=== PATIENT | male | born 1940 | race Caucasian/White ===

== ENCOUNTER 2017-01-20 20:43 | Emergency (ER) | payer MEDICARE, BC, OTHER ==
[2017-01-20] MEDS ORDERED: ATEN25TA PO (21:54)
[2017-01-20] MEDS ORDERED: BLOOD THINNER PO (21:54)
[2017-01-20 21:58] VITALS: BP 119/77; PULSE 100; RESP 18; TEMP 97.8; O2SAT 97
--- NOTE | 2017-01-20 22:10 | PD ---
HPI Chief Complaint: Psychiatric Symptoms Time Seen by Provider: 21:29 Travel History International Travel<30 days: No Contact w/Intl Traveler<30days: No Traveled to known affect area: No History of Present Illness HPI This is a 76-year-old male who is here under a Valentin act with his because they were a silver alert. Evidently they both they both left [place] and drove to [place] because his son was in the hospital here. At some point they made contact with a family member and told them they were lost in [place]. The family became concerned as they hadn't heard from them in several days. The patient reports he is not sure what his children are worried about and he thinks a lot of this has to do with them having a broken phone. PFSH Past Medical History Hx Anticoagulant Therapy: Yes Atrial Fibrillation: Yes Cardiovascular Problems: Yes (AFIB) Hypertension: Yes Social History Alcohol Use: No Tobacco Use: No Allergies-Medications (Allergen,Severity, Reaction): Coded Allergies: No Known Allergies (Unverified , 01/20/17) Reported Meds & Prescriptions Reported Meds & Active Scripts Active Reported [Blood Thinner] PO Atenolol 25 Mg Tab Unknown Dose PO BID Review of Systems ROS Limitations: Poor Historian Physical Exam Narrative GENERAL:Well appearing, no acute distress SKIN: Focused skin assessment warm and dry. HEAD: Atraumatic. Normocephalic. EYES: Pupils equal and round. No injection or drainage. ENT: Moist mucous membranes NECK: Trachea midline. CARDIOVASCULAR: Regular rate and rhythm. No murmur appreciated. RESPIRATORY: Clear to auscultation. Breath sounds equal bilaterally. GASTROINTESTINAL: Abdomen soft, non-tender, nondistended. MUSCULOSKELETAL: No obvious deformities. NEUROLOGICAL: Oriented to person and place. He is somewhat tangential and a little confused. No obvious cranial nerve deficits. Moving all extremities. PSYCHIATRIC: reserved, but no thoughts of hurting himself or others, makes eye contact Data Data Last Documented VS Vital Signs Date Time Temp Pulse Resp B/P Pulse Ox O2 Delivery O2 Flow Rate FiO2 01/20/17 21:58 97.8 100 18 119/77 97 Orders Complete Blood Count With Diff (01/20/17 21:29) Comprehensive Metabolic Panel (01/20/17 21:29) Urinalysis - C+S If Indicated (01/20/17 21:29) Drug Screen, Random Urine (01/20/17 21:29) Labs Laboratory Tests Test 01/20/17 22:50 White Blood Count 8.6 TH/MM3 Red Blood Count 5.16 MIL/MM3 Hemoglobin 15.1 GM/DL Hematocrit 43.9 % Mean Corpuscular Volume 85.1 FL Mean Corpuscular Hemoglobin 29.2 PG Mean Corpuscular Hemoglobin 34.4 % Concent Red Cell Distribution Width 14.2 % Platelet Count 223 TH/MM3 Mean Platelet Volume 9.6 FL Neutrophils (%) (Auto) 76.5 % Lymphocytes (%) (Auto) 13.8 % Monocytes (%) (Auto) 6.3 % Eosinophils (%) (Auto) 1.5 % Basophils (%) (Auto) 1.9 % Neutrophils # (Auto) 6.6 TH/MM3 Lymphocytes # (Auto) 1.2 TH/MM3 Monocytes # (Auto) 0.5 TH/MM3 Eosinophils # (Auto) 0.1 TH/MM3 Basophils # (Auto) 0.2 TH/MM3 CBC Comment AUTO DIFF Differential Comment AUTO DIFF CONFIRMED Urine Color YELLOW Urine Turbidity HAZY Urine pH 5.5 Urine Specific Valentine 1.035 Urine Protein 30 mg/dL Urine Glucose (UA) NEG mg/dL Urine Ketones TRACE mg/dL Urine Occult Blood NEG Urine Nitrite NEG Urine Bilirubin NEG Urine Urobilinogen 2.0 MG/DL Urine Leukocyte Esterase NEG Urine RBC 2 /hpf Urine WBC 3 /hpf Urine Squamous Epithelial <1 /hpf Cells Urine Mucus MANY /lpf Microscopic Urinalysis Comment CULT NOT INDICATED Sodium Level 142 MEQ/L Potassium Level 3.6 MEQ/L Chloride Level 107 MEQ/L Carbon Dioxide Level 25.2 MEQ/L Anion Gap 10 MEQ/L Blood Urea Nitrogen 23 MG/DL Creatinine 1.04 MG/DL Estimat Glomerular Filtration 69 ML/MIN Rate Random Glucose 105 MG/DL Calcium Level 8.4 MG/DL Total Bilirubin 1.3 MG/DL Aspartate Amino Transf 24 U/L (AST/SGOT) Alanine Aminotransferase 31 U/L (ALT/SGPT) Alkaline Phosphatase 119 U/L Total Protein 6.8 GM/DL Albumin 3.8 GM/DL Urine Opiates Screen NEG Urine Barbiturates Screen NEG Urine Amphetamines Screen NEG Urine Benzodiazepines Screen NEG Urine Cocaine Screen NEG Urine Cannabinoids Screen NEG MDM Medical Decision Making Medical Screen Exam Complete: Yes Emergency Medical Condition: Yes Interpretation(s) Afebrile, mild tachycardia, normotensive No leukocytosis Total bilirubin is 1.3 Drug screen is negative Urinalysis is negative for infection Differential Diagnosis Urinary tract infection, electrolyte abnormality, dehydration, dementia Narrative Course This is a 76-year-old male who presents to the emergency department with some confusion. Him and his took off on a trip from [place] down to [place] and it seems they've had some mishaps along the way likely due to both of their confusion. They did stay in their car last night. The family was concerned and they were brought in under Valentin act. The patient's are very cooperative, pleasant, and understand that their children are worried about them. I don't think that this gentleman meets Valentin act criteria as he has no mental illness. I think the situation is mostly due to early dementia. The family has been contacted and they're going to arrive tomorrow by plane and they're going to help their parents get home. I think this is a reasonable solution. I did lift the Valentin act because I don't think it's appropriate and I don't think the patient's require psychiatric evaluation as much as a require safe disposition. Diagnosis Primary Impression: Dementia Qualified Code: F03.90 - Dementia without behavioral disturbance, unspecified dementia type Patient Instructions: General Instructions Med/Other Pt SpecificInfo: No Change to Meds Disposition: 01 DISCHARGE HOME Condition: Stable Evelia Greer MD Jan 20, 2017 22:10
[2017-01-20 23:13] LABS: AUTOMATED NEUTROPHIL # 6.6 TH/MM3 (1.8-7.7); BASOPHIL # 0.2 TH/MM3 (0-0.2); BASOPHIL % 1.9 % (0.0-2.0); EOSINOPHIL # 0.1 TH/MM3 (0-0.4); EOSINOPHIL % 1.5 % (0.0-4.0); HEMATOCRIT 43.9 % (39.0-51.0); LYMPH % 13.8 % (9.0-44.0); LYMPHOCYTE # 1.2 TH/MM3 (1.0-4.8); MEAN CELL VOLUME 85.1 FL (80.0-100.0); MEAN CORPUSCULAR HEMOGLOBIN 29.2 PG (27.0-34.0); MEAN CORPUSCULAR HGB CONC 34.4 % (32.0-36.0); MONO % 6.3 % (0.0-8.0); NEUT % 76.5 % (16.0-70.0); PLATELET COUNT 223 TH/MM3 (150-450); RED BLOOD COUNT 5.16 MIL/MM3 (4.50-5.90); RED CELL DISTRIBUTION WIDTH 14.2 % (11.6-17.2); WHITE BLOOD COUNT 8.6 TH/MM3 (4.0-11.0)
[2017-01-20 23:14] LABS: HEMO FLAGS AUTO DIFF
[2017-01-20 23:21] LABS: BLOOD, URINE NEG (NEG); COMMENT (UR) CULT NOT INDICATED; CULTURE IF INDICATED CULT NOT INDICATED; GLUCOSE,URINE NEG (NEG); KETONE, URINE TRACE mg/dL (NEG); MUCUS URINE MANY /lpf (OCC); NITRITE,URINE NEG (NEG); PH, URINE 5.5 (5.0-8.5); SQUAMOUS EPITHELIAL CELL URINE <1 /hpf (0-5); URINE COLOR YELLOW (YELLW/STRAW)
[2017-01-20 23:23] LABS: AMPHETAMINE, URINE NEG (NEG); BARBITURATES, URINE NEG (NEG); COCAINE, URINE NEG (NEG)
[2017-01-20 23:25] LABS: ALT (GPT) 31 U/L (12-78); ANION GAP 10 MEQ/L (5-15); AST (GOT) 24 U/L (15-37); BICARBONATE 25.2 MEQ/L (21.0-32.0); BLOOD UREA NITROGEN 23 MG/DL (7-18); CHLORIDE 107 MEQ/L (98-107); GLOMERULAR FILTRATION RATE 69 ML/MIN (>89); POTASSIUM 3.6 MEQ/L (3.5-5.1); SODIUM (NA) 142 MEQ/L (136-145)
[2017-01-20 23:28] LABS: ALKALINE PHOSPHATASE 119 U/L (45-117); TOTAL BILIRUBIN ADULT 1.3 MG/DL (0.2-1.0)
[2017-01-20 23:39] LABS: SCAN/DIFF AUTO DIFF CONFIRMED
[2017-01-21 07:47] VITALS: BP 123/80; PULSE 97; RESP 12; O2SAT 99
== END 2017-01-21 17:53 | disposition home or self-care (01) ==
LOC: NEPD 20:43
DX: F03.90 Unspecified dementia, unspecified severity, without behavioral disturbance, psychotic disturbance, mood disturbance, and anxiety (principal); I48.91 Unspecified atrial fibrillation; I10 Essential (primary) hypertension; Z79.01 Long term (current) use of anticoagulants; Z79.899 Other long term (current) drug therapy
CPT/HCPCS: 80053; 80307; 81001; 85025; 99283